=== PATIENT | male | born 1985 | race Caucasian/White ===

== ENCOUNTER → 2017-03-06 | Outpatient (CLI) | payer OTHER | LOC: CAT 07:56 | DX: J32.9 Chronic sinusitis, unspecified (principal); J34.2 Deviated nasal septum; H93.8X3 Other specified disorders of ear, bilateral; R42 Dizziness and giddiness ==

== ENCOUNTER 2017-05-07 10:04 | Inpatient (IN) | payer OTHER ==
[~2017-05-07] VITALS: Ht 170.2 cm; Wt 95.3 kg
[~2017-05-07 10:04] MED LIST: AMBIEN 5 MG TABL5 M1 PO; AUGMENTIN 875-1 EACH PO; CELEXA40 MG PO; KLONOPIN1 MG PO; MEDROL DOSPAK21 TA1 PO; NASONEX17 GM NASAL
[2017-05-07 10:06] VITALS: BP 116/72
[2017-05-07 11:27] LABS: ABSOLUTE NEUTROPHILS 4.6 thou/uL (1.4-8.2); BASOPHILS 0.8 % (0.0-2.0); EOSINOPHILS 0.6 % (0.0-3.0); HEMATOCRIT 41.2 % (42.0-52.0); HEMOGLOBIN 14.1 gm/dL (14.0-18.0); LYMPHOCYTES 25.4 % (24.0-44.0); MCH 29.2 pg (26.0-34.0); MCHC 34.3 g/dL (28.0-37.0); MCV 85.3 fL (80.0-100.0); PLATELET COUNT 213 thou/uL (150-400); POLYS 65.2 % (36.0-66.0); RBC 4.83 mil/uL (4.50-6.00); RDW 13.2 % (10.5-14.5)
[2017-05-07 11:38] LABS: MANUAL DIFF NO
[2017-05-07 11:39] LABS: CALCIUM 9.2 mg/dL (8.5-10.1); CREATININE 0.7 mg/dL (0.7-1.3); POTASSIUM 3.5 mmol/L (3.5-5.1)
[2017-05-07 11:45] LABS: ALBUMIN 3.8 g/dL (3.4-5.0); TOTAL BILIRUBIN 0.4 mg/dL (<0.1-1.0)
[2017-05-07 12:35] LABS: TOTAL PROTEIN 6.8 g/dL (6.4-8.2)
[2017-05-07 13:42] VITALS: BP 118/62
[2017-05-07 15:50] VITALS: BP 112/60
[2017-05-07 17:05] VITALS: BP 120/68
[2017-05-07 19:18] VITALS: BP 121/7
[2017-05-08 05:16] VITALS: BP 114/66
[2017-05-08 08:00] VITALS: BP 113/61
[2017-05-08 13:14] VITALS: BP 113/61
== END 2017-05-08 16:28 | disposition home health service (06) | DRG 155 ==
LOC: ER 10:04 → EROBS 12:09 → 4S 14:30
PROVIDERS: Physician Assistant
DX: H60.91 Unspecified otitis externa, right ear (principal); L03.211 Cellulitis of face; R10.9 Unspecified abdominal pain; Z90.49 Acquired absence of other specified parts of digestive tract; Z79.899 Other long term (current) drug therapy
CPT/HCPCS: 10195

== ENCOUNTER → 2017-07-10 | Outpatient (CLI) | payer OTHER ==
[~2017-07-10] VITALS: Ht 170.2 cm; Wt 89.8 kg
[~2017-07-10] MED LIST changes: +NEXIUM40 MG PO
--- NOTE | ~2017-07-10 | P ---
[facility] [place] [address] PROCEDURE REPORT Name: TYESHATRISTIAN Moreno Room #: REG [facility]#: [id number] Admission: 07/10/17 Attend Phys: Herrera Hernandez Discharge: Date of : 83 Report #: [id number] THIS REPORT FOR: //name// CC: Herrera Luis MD DATE OF SERVICE: 07/10/2017 PROCEDURE PERFORMED: Colonoscopy with biopsies. HISTORY OF PRESENT ILLNESS: The patient is a 32-year-old male with a change in bowel habits and weight loss, was seen in the office on 06/18/2017, with a history of diarrhea and abdominal pain, this all started in April after he was on antibiotics. C. diff times 2 have been negative. EGD was just performed, which was normal. Plan is for colonoscopy. PROCEDURE: The risks and benefits of the procedure were explained to the patient, those risks including, but not limited to bleeding, perforation, and the risk of sedation. He understood these risks and gave informed consent. Sedation was given using propofol per anesthesia. Next, a digital rectal exam was initially performed, which was normal. Next, using a standard Fujinon colonoscope, the scope was placed in the patient's anus and advanced under direct vision to the cecum. The overall prep was excellent. The cecum and ileocecal valve were normal in appearance. Terminal ileum was intubated and normal in appearance. Ascending, transverse and descending colon were all normal. In the sigmoid colon, a small 4-mm sessile polyp was noted, this was removed with cold forceps. Also, random biopsies were obtained today to rule out the possibility of microscopic colitis. The rectal mucosa was normal. On retroflexion, no abnormalities were noted. The scope was then withdrawn and the procedure terminated. The patient tolerated the procedure well. IMPRESSION: 1. Small colonic polyp. 2. Otherwise, normal colonoscopy. RECOMMENDATIONS: We will await biopsies from EGD and colonoscopy today. Thank you for allowing me to participate in his care. <ELECTRONICALLY SIGNED> By: Herrera Mcgee MD 07/11/17 0916 0849 1140 Herrera Mcgee MD /nt
--- NOTE | ~2017-07-10 | S ---
[facility] [address] [place] [address] SURGICAL PATH RPT PROCEDURE Name: TRISTIAN ARAMBULA Room #: REG GREG Melo#: [id number] Admission: 07/10/17 Date of : 83 Discharge: Report #: [id number] Path Case #: [id number] PATHOLOGY REPORT DRAFT COLLECTION DATE: 07/10/2017 RECEIVED DATE: 07/10/2017 SPECIMEN(S) RECEIVED: A.Bx of duodenum R/O sprue B.Bx of gastric R/O H pylori C.Random colon bx R/O microscopic colitis D.Polyp at sigmoid colon
--- NOTE | ~2017-07-10 | P ---
[facility] [place] [address] [address] PROCEDURE REPORT Name: TYESHATRISTIAN Moreno Room #: REG [facility]#: [id number] Admission: 07/10/17 Attend Phys: Herrera Hernandez Discharge: Date of : 83 Report #: [id number] THIS REPORT FOR: //name// CC: Herrera Luis MD DATE OF SERVICE: 07/10/2017 PROCEDURE PERFORMED: Upper endoscopy with biopsies. HISTORY OF PRESENT ILLNESS: The patient is a 32-year-old male who was seen in the office on 06/18/2017, with complaints of diarrhea and abdominal pain began after sinus surgery in April when he was on antibiotics. C. diff times 2 has been negative. He also complains of mid epigastric abdominal pain as well as lower quadrant bilaterally abdominal pain. He has had weight loss as well. Plan is for EGD and colonoscopy today. PROCEDURE: The risks and benefits of the procedure were explained to the patient, those risks including, but not limited to bleeding, perforation, and the risk of sedation. He understood these risks and gave informed consent. Sedation was given using propofol per anesthesia. Next, using a standard TMATn upper endoscope, the scope was placed in the patient's mouth and advanced under direct vision through the esophagus, stomach and into the second portion of the duodenum. The esophagus was normal throughout. The GE junction was normal. Overall, the gastric mucosa was normal. Biopsies were obtained to rule out H. pylori. The pylorus was normal and patent. The duodenal bulb, first and second portion were all normal. Biopsies were obtained to rule out the possibility of celiac sprue. The scope was then withdrawn and the procedure terminated. The patient tolerated the procedure well. IMPRESSION: Normal upper endoscopy. RECOMMENDATIONS: 1. Await biopsy results. 2. We will proceed with colonoscopy next today. Thank you for allowing me to participate in his care. <ELECTRONICALLY SIGNED> By: Herrera Mcgee MD 07/11/17 0916 0827 1114 Herrera Mcgee MD /nt
== END | disposition home or self-care (01) ==
LOC: GI 06:56
DX: K63.5 Polyp of colon (principal); R10.13 Epigastric pain; F41.8 Other specified anxiety disorders; K21.9 Gastro-esophageal reflux disease without esophagitis; Z79.899 Other long term (current) drug therapy; Z90.49 Acquired absence of other specified parts of digestive tract

== ENCOUNTER → 2017-10-14 | Outpatient (CLI) | payer OTHER | LOC: ULTRA 08:24 | DX: R10.11 Right upper quadrant pain (principal); R10.12 Left upper quadrant pain ==

== ENCOUNTER 2017-11-29 11:45 | Emergency (ER) | payer OTHER ==
[~2017-11-29] VITALS: Ht 170.2 cm; Wt 81.7 kg
[2017-11-29 12:31] LABS: URINE BILIRUBIN NEGATIVE (Negative); URINE BLOOD NEGATIVE (Negative); URINE CLARITY CLEAR; URINE COLOR YELLOW; URINE GLUCOSE-RANDOM* NEGATIVE (Negative); URINE KETONES NEGATIVE (Negative); URINE LEUKOCYTES NEGATIVE (Negative); URINE NITRITE NEGATIVE (Negative); URINE PROTEIN (DIPSTICK) NEGATIVE (Negative); URINE SPECIFIC GRAVITY <= 1.005 (1.005-1.035); URINE UROBILINOGEN 0.2 E.U./dl (0.2-1.0)
[2017-11-29 12:40] LABS: ABSOLUTE NEUTROPHILS 2.4 thou/uL (1.4-8.2); BASOPHILS 1.3 % (0.0-2.0); EOSINOPHILS 0.8 % (0.0-3.0); HEMATOCRIT 45.8 % (42.0-52.0); HEMOGLOBIN 15.6 gm/dL (14.0-18.0); LYMPHOCYTES 35.1 % (24.0-44.0); MCH 29.4 pg (26.0-34.0); MCHC 34.1 g/dL (28.0-37.0); MONOCYTES 8.5 % (1.0-8.0); PLATELET COUNT 220 thou/uL (150-400); POLYS 54.3 % (36.0-66.0); RBC 5.33 mil/uL (4.50-6.00); RDW 13.9 % (10.5-14.5); WBC 4.5 thou/uL (4.0-11.0)
[2017-11-29 12:48] LABS: CALCIUM 9.7 mg/dL (8.5-10.1); CREATININE 0.9 mg/dL (0.7-1.3)
== END 2017-11-29 13:22 | disposition home or self-care (01) ==
LOC: ER 11:45
PROVIDERS: Physician Assistant
DX: B34.9 Viral infection, unspecified (principal); R19.7 Diarrhea, unspecified; R53.83 Other fatigue; F41.9 Anxiety disorder, unspecified; K21.9 Gastro-esophageal reflux disease without esophagitis; Z90.49 Acquired absence of other specified parts of digestive tract

== ENCOUNTER → 2019-03-11 | Outpatient (CLI) | payer OTHER ==
[~2019-03-11] MED LIST changes: +COMPAZINE10 MG PO
== END ==
LOC: CAT 03-03 13:42
DX: R10.32 Left lower quadrant pain (principal); K56.41 Fecal impaction; Z90.49 Acquired absence of other specified parts of digestive tract

== ENCOUNTER → 2019-03-18 | Outpatient (CLI) | payer OTHER ==
[~2019-03-18] MED LIST changes: +ALLEGRA-D 24 H1 EACH PO
== END ==
LOC: MRI 08:11
DX: R42 Dizziness and giddiness (principal); R20.2 Paresthesia of skin; R53.83 Other fatigue; J32.0 Chronic maxillary sinusitis; J32.1 Chronic frontal sinusitis; J32.2 Chronic ethmoidal sinusitis

== ENCOUNTER 2019-03-22 06:29 | Emergency (ER) | payer OTHER ==
[~2019-03-22] VITALS: Ht 170.2 cm; Wt 85.3 kg
[~2019-03-22 06:29] MED LIST changes: -ALLEGRA-D 24 H1 EACH PO
[2019-03-22] MEDS ORDERED: ALLEGRA-D 24 H1 EACH PO (06:36)
[2019-03-22 07:09] LABS: ABSOLUTE NEUTROPHILS 2.5 thou/uL (1.4-8.2); BASOPHILS 1.1 % (0.0-2.0); EOSINOPHILS 1.7 % (0.0-3.0); HEMOGLOBIN 16.2 gm/dL (14.0-18.0); LYMPHOCYTES 41.6 % (24.0-44.0); MCH 29.4 pg (26.0-34.0); MCHC 34.5 g/dL (28.0-37.0); MONOCYTES 9.1 % (1.0-8.0); PLATELET COUNT 228 thou/uL (150-400); POLYS 46.5 % (36.0-66.0); RBC 5.53 mil/uL (4.50-6.00); WBC 5.4 thou/uL (4.0-11.0)
[2019-03-22 07:12] LABS: CALCIUM 9.5 mg/dL (8.5-10.1); CREATININE 0.8 mg/dL (0.7-1.3); POTASSIUM 3.6 mmol/L (3.5-5.1)
[2019-03-22 07:17] LABS: ALBUMIN 4.3 g/dL (3.4-5.0); TOTAL BILIRUBIN 0.6 mg/dL (<0.1-1.0); TOTAL PROTEIN 7.6 g/dL (6.4-8.2)
[2019-03-22 07:29] VITALS: BP 112/77
--- NOTE | 2019-03-22 16:00 | EKG ---
[place] [address] [facility] [place] [address] ELECTROCARDIOGRAM REPORT Name: TRISTIAN ARAMBULA Room #: [facility]#: [id number] Admission: 03/22/19 Attend Phys: Discharge: 03/22/19 Date of : 83 Report #: [id number] THIS REPORT FOR: //name// [facility] ED Test Date: 2019-03-22 Test Time: 06:47:28 Pat Name: TRISTIAN ARAMBULA Department: Room: Gender: Billing Adjudicator: : 1985 Requested By: Alfonso Mendoza Order Number: [id number] MD: Gabriel Izquierdo Measurements Intervals [place] Rate: 69 P: 45 VA: 176 QRS: 44 QRSD: 99 T: 32 QT: 380 QTc: 407 Interpretive Statements Sinus rhythm Baseline wander in lead(s) V2 No previous ECG available for comparison Electronically Signed On 03-22-2019 16:00:34 CDT by Gabriel Izquierdo [email or web address] <ELECTRONICALLY SIGNED> By: Gabriel Izquierdo MD 03/22/19 1600 0647 0647 Gabriel Izquierdo MD /CARLO
== END 2019-03-22 07:37 | disposition home or self-care (01) ==
LOC: ER 06:29
PROVIDERS: Emergency Medicine
DX: R52 Pain, unspecified (principal); F41.9 Anxiety disorder, unspecified; K21.9 Gastro-esophageal reflux disease without esophagitis; Z90.49 Acquired absence of other specified parts of digestive tract

== ENCOUNTER → 2019-04-15 | Outpatient (CLI) | payer OTHER ==
[~2019-04-15] VITALS: Ht 170.2 cm; Wt 84.8 kg
[~2019-04-15] MED LIST changes: +ALLEGRA-D 24 H1 EACH PO; +BENADRYL25 MG PO; +FISH OIL 1,001000 M2 PO
--- NOTE | 2019-04-18 16:06 | PATH ---
[facility] [place] [address] PATHOLOGY RPT PROCEDURE Name: TRISTIAN CROCKER Moreno Room #: REG GREG Mariella.#: [id number] Admission: 04/15/19 Date of : 83 Discharge: Report #: [id number] Path Case #: [id number] [facility] Accession Number: [id number] . 01 Material submitted: . PART A: duodenum - BX DUODENUM PART B: stomach - GASTRIC BX . 01 Clinical history: . Pre-OP DX: Abdominal pain/bloating Post-OP DX: Same as pre-op . 02 Diagnosis: A. Small bowel mucosa, duodenum rule out sprue, endoscopic biopsy: - No significant diagnostic abnormalities present. - Negative for villous blunting or increase in intraepithelial lymphocytes. . B. Gastric mucosa, gastric, endoscopic biopsy: - Mild reactive gastropathy. - Negative for intestinal metaplasia or atrophy. - Negative for Helicobacter pylori (properly controlled immunohistochemical stain performed). . (IUV:[place]; 04/18/2019) MBR 04/18/2019 1212 Local . 02 Electronically signed: . Linda Riggs MD, Pathologist NPI- [id number] . 01 Gross description: . A. Received in formalin labeled "Tristian Crocker, BX duodenum, rule out sprue," are 4 segments of bryan soft tissue measuring 1.0 x 1.0 x 0.3 cm in aggregate dimensions and ranging from 0.4 to 0.5 cm in maximum dimension. The specimen is submitted entirely in cassette A1. . B. Received in formalin labeled "Tristian crocker, gastric BX, rule out H. pylori4," are 4 segments of bryan soft tissue measuring 1.1 x 0.9 x 0.2 cm in aggregate dimensions and ranging from 0.3 to 0.6 cm in maximum dimension. The specimen is submitted entirely in cassette B1. (TSD; 04/15/2019) TOB/TOB 04/15/2019 1622 Local . 02 Pathologist provided ICD-10: K31.9, R10.9, R14.0 . 02 [place] [address] PATHOLOGY RPT PROCEDURE Name: TRISTIAN CROCKER Room #: REG GREG Melo#: [id number] Admission: 04/15/19 Date of : 83 Discharge: Report #: [id number] Path Case #: [id number] [facility] . [id number], [id number], [id number] Specimen Comment: A courtesy copy of this report has been sent to Specimen Comment: [phone], . Specimen Comment: Report sent to / DR STARKEY Performed at: [address], [place] [id number] MD Augustine Wilson MD Phone: [phone] Performed at: [address] [id number] MD Linda Riggs MD Phone: [phone]
--- NOTE | 2019-04-20 10:34 | P ---
[facility] [place] [address] [place] [address] PROCEDURE REPORT Name: TYESHATRISTIAN Moreno Room #: REG [facility]#: [id number] Admission: 04/15/19 Attend Phys: Herrera Hernandez Discharge: Date of : 83 Report #: [id number] THIS REPORT FOR: //name// CC: Herrera Luis MD DATE OF SERVICE: 04/15/2019 PROCEDURE PERFORMED: Upper endoscopy with biopsies. HISTORY OF PRESENT ILLNESS: The patient is a 34-year-old male who is well known to me with a history of intermittent abdominal pain and bloating. He did have a small bowel bacterial overgrowth test that was positive, recently treated with a short course of antibiotics. No significant improvement. Plan is for upper endoscopy. The patient in the past had been on Aciphex for reflux. He denies any heartburn symptoms or dysphagia at this time. DESCRIPTION OF PROCEDURE: The risks and benefits of the procedure were explained to the patient, those risks including but not limited to bleeding, perforation and the risk of sedation. He understood these risks and gave informed consent. Sedation was given using propofol per anesthesia. Next, using a standard Olympus upper endoscope, the scope was placed in the patient's mouth and advanced under direct vision through the esophagus, stomach and into the second portion of the duodenum. The larynx was normal in appearance. The esophagus was normal throughout. The GE junction was normal. No evidence of esophagitis. Overall, the gastric mucosa was normal. Biopsies were obtained to rule out the possibility of H. pylori. The pylorus was normal and patent. The duodenal bulb, first and second portion were all normal. Biopsies were obtained to rule out the possibility of celiac sprue. The scope was then withdrawn and the procedure terminated. The patient tolerated the procedure well. IMPRESSION: Normal upper endoscopy. RECOMMENDATIONS: 1. Await biopsy results. 2. The patient is also scheduled for a small bowel follow through in the near future. Thank you for allowing me to participate in his care. <ELECTRONICALLY SIGNED> By: Herrera Mcgee MD 04/20/19 1034 0846 1914 Herrera Mcgee MD /nt
== END | disposition home or self-care (01) ==
LOC: GI 06:55
DX: K31.9 Disease of stomach and duodenum, unspecified (principal); F41.9 Anxiety disorder, unspecified; F17.210 Nicotine dependence, cigarettes, uncomplicated; Z90.49 Acquired absence of other specified parts of digestive tract; Z98.890 Other specified postprocedural states; Z79.899 Other long term (current) drug therapy
CPT/HCPCS: 62110; 62900

== ENCOUNTER → 2019-06-20 | Outpatient (CLI) | payer OTHER | LOC: NUC 05-13 15:49 | DX: R10.11 Right upper quadrant pain (principal) ==

== ENCOUNTER → 2019-07-12 | Outpatient (CLI) | payer OTHER | LOC: MRI 09:55 | DX: M47.812 Spondylosis without myelopathy or radiculopathy, cervical region (principal); M25.78 Osteophyte, vertebrae; M48.02 Spinal stenosis, cervical region; Z86.69 Personal history of other diseases of the nervous system and sense organs ==

== ENCOUNTER → 2019-12-22 | Outpatient (CLI) | payer OTHER | LOC: LABMALL 11:20 | DX: K52.9 Noninfective gastroenteritis and colitis, unspecified (principal); R94.5 Abnormal results of liver function studies; I10 Essential (primary) hypertension ==